=== PATIENT | female | born 1940 | race Caucasian/White ===

== ENCOUNTER 2018-05-02 11:46 | Observation (INO) | payer OTHER ==
[~2018-05-02 11:46] MED LIST: LISINOPRIL 2.5 MG TAB PO ONE
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
[2018-05-02] MEDS ORDERED: fentaNYL 100 MCG/2 ML INJ IVP ONE (13:26)
[2018-05-02 13:55] LABS: PLATELET COUNT 201 10^3/uL (150-400)
[2018-05-02] MEDS ORDERED: LISINOPRIL 5 MG TAB PO ONE (14:15)
[2018-05-02] MEDS ORDERED: ASPIRIN 81 MG CHEWABLE TAB PO ONE (14:50)
[2018-05-02] MEDS ORDERED: ACETAMINOPHEN 500 MG TAB PO ONE (14:50)
[2018-05-02] MEDS ORDERED: IBUPROFEN 200 MG TAB PO PRN (15:08)
[2018-05-02] MEDS ORDERED: ONDANSETRON 4 MG/2 ML VIAL IVP PRN (15:08)
[2018-05-02] MEDS ORDERED: ONDANSETRON DISINTEGRATING 4 MG TAB PO PRN (15:08)
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
[2018-05-02] MEDS: METOPROLOL SUCCINATE XR 25 MG TAB PO SCH (16:09)
--- NOTE | 2018-05-02 16:14 | CPEKG ---
Test Reason : OPEN Blood Pressure : / mmHG Vent. Rate : 054 BPM Atrial Rate : 054 BPM P-R Int : 175 ms QRS Dur : 114 ms QT Int : 470 ms P-R-T Axes : 060 -27 059 degrees QTc Int : 446 ms Sinus rhythm Incomplete right bundle branch block Left ventricular hypertrophy Confirmed by Dory Meza ([id number]) on 05/02/2018 4:14:06 PM Referred By: Confirmed By:Dory Meza
[2018-05-02] MEDS: ACETAMINOPHEN 500 MG TAB PO SCH (20:59)
[2018-05-02] MEDS ORDERED: LISINOPRIL 5 MG TAB PO SCH (21:00)
[2018-05-02] MEDS ORDERED: METOPROLOL SUCCINATE XR 25 MG TAB PO SCH (21:00)
[2018-05-02] MEDS ORDERED: ATORVASTATIN CALCIUM 20 MG TAB PO SCH (21:00)
[2018-05-02] MEDS ORDERED: ASPIRIN 81 MG CHEWABLE TAB PO SCH (21:00)
[2018-05-03] MEDS: ACETAMINOPHEN 500 MG TAB PO SCH ×2 (05:51→08:58)
[2018-05-03] MEDS ORDERED: CHOLECALCIFEROL VIT D3 2,000 UNITS TAB/CAP PO SCH (09:00)
[2018-05-03] MEDS ORDERED: REGADENOSON 0.4 MG/5 ML SYR IVP ONE (10:48)
[2018-05-03 12:28] VITALS: BP 126/63
[2018-05-03] MEDS: METOPROLOL SUCCINATE XR 25 MG TAB PO SCH (13:40)
--- NOTE | 2018-05-03 14:06 | ASMTCMCOM ---
CM Note CM Note Notes: Patient admitted with c/o chest pain and general pain - this is likely d/t her uncontrolled hypertension. She had a stress test this morning. Patient normally lives independently at [facility], although she will go home from [facility] with her daughter for a few days. No discharge needs anticipated, but Case Management available if this changes. Date Signed: 05/03/2018 02:05 PM Electronically Signed By:Adilene Rodriguez RN
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
--- NOTE | 2018-05-03 15:53 | ASDISCHSUM ---
Discharge Information Plan Status:Home with No Needs Medically Cleared to Leave:05/03/2018 Discharge Date:05/03/2018 CM D/C Disposition:Home, Routine, Self-Care ADT D/C Disposition:Home, Routine, Self-Care Projected Discharge Date:05/03/2018 Transportation at D/C:Family Discharge Delay Reason: Follow-Up Date:05/03/2018 Discharge Slot: Final Diagnosis: Placement Information Patient Contact Information Contact Name:ZOË Relationship:Other Address: Work Phone: City: [facility] Phone: State/[place] Medical Code: Email: Financial Information Financial Class:Commercial Primary Plan Desc:[employer] Primary Plan Number:[id number] Secondary Plan Desc:[employer] Secondary Plan Number:[id number] Assessment Information LACE LACE Length of stay for Answers: 1 day current admission Acuity / Level of Answers: No Care: Did the patient have an inpatient admission? Comorbidities - select Answers: Coronary Artery Disease all that apply Other Notes: HTN, hypercholesteremia # of Emergency department Answers: 1-2 visits in the last 6 months Score: 5 Date Signed: 05/03/2018 03:45 PM Electronically Signed By:Sofi Young RN [facility] CM Progress Note CM Note CM Note Notes: Patient admitted with c/o chest pain and general pain - this is likely d/t her uncontrolled hypertension. She had a stress test this morning. Patient normally lives independently at [facility], although she will go home from [facility] with her daughter for a few days. No discharge needs anticipated, but Case Management available if this changes. Date Signed: 05/03/2018 02:05 PM Electronically Signed By:Adilene Rodriguez, RN Intervention Information
--- NOTE | 2018-05-03 16:15 | CPR ---
DATE OF PROCEDURE: 05/03/2018 REASON FOR TEST: 1. Chest discomfort. 2. Abnormal EKG. 3. Resting EKG shows an incomplete bundle branch block, sinus bradycardia with a rate of 53, T-wave inversion in the inferior leads. She is asymptomatic prior to testing. STRESS PORTION LEXISCAN: Lexiscan was injected rapidly, followed by saline flush. Cardiolite was th en injected, followed by saline flush. She did become symptomatic with nausea and shortness of breat h and flushing. Her EKG did show continued T-wave inversions in the inferior leads. Blood pressure 110/80, oxygen saturation 99%, peak heart rate 84. RECOVERY: She did spontaneously recover with caffeine. Her EKG remained T-wave inversions in the in ferior leads. Her symptoms had completely subsided by the end of the recovery. Recovery blood press ure 120/92, oxygen saturation 99%, heart rate 77. At this time, she currently is stable for nuclear imaging. /[id number]/MODL
== END 2018-05-03 16:41 | disposition home or self-care (01) ==
LOC: F2W 15:50
PROVIDERS: ADMIT Internal Medicine; ATTEND Internal Medicine
DX: M79.602 Pain in left arm (principal); M54.2 Cervicalgia; R51 Headache; I10 Essential (primary) hypertension; I45.10 Unspecified right bundle-branch block; V87.7XXA Person injured in collision between other specified motor vehicles (traffic), initial encounter; Y92.410 Unspecified street and highway as the place of occurrence of the external cause; Y99.8 Other external cause status; I25.10 Atherosclerotic heart disease of native coronary artery without angina pectoris; D75.1 Secondary polycythemia; Z95.1 Presence of aortocoronary bypass graft
CPT/HCPCS: 70450; 71046; 78452; 93005; 93017; 96374; 99285; A9500; 84484-PO; J2785; J3010